=== PATIENT | female | born 1980 | race Caucasian/White ===

== ENCOUNTER → 2021-05-11 | Outpatient (CLI) | payer BC ==
[~2021-05-11] MED LIST: MOTRIN 600600 MG/TAB PO; MOTRIN 800800 MG/TAB PO; PERCOCET 325 MG1 TA2 PO
== END ==
LOC: MC.RAD 10:58
DX: Z12.31 Encounter for screening mammogram for malignant neoplasm of breast (principal)

== ENCOUNTER → 2023-02-26 | Outpatient (CLI) | payer BC | LOC: CANSCHCLI → MC.RAD 08:59 | DX: Z12.31 Encounter for screening mammogram for malignant neoplasm of breast (principal) ==